=== PATIENT | male | born 1975 | race Caucasian/White ===

== ENCOUNTER 2020-11-13 09:51 | Inpatient (IN) | payer OTHER ==
[~2020-11-13] VITALS: Ht 188 cm; Wt 88.7 kg
[2020-11-13 10:38] LABS: BASOPHIL 0.9 % (0-2); EOSINOPHIL 0.3 % (0-5); HCT 46.4 % (42.0-52.0); HGB 16.4 g/dl (13.2-18.0); LYMPHOCYTE 19.4 % (15-48); MCH 34.1 pg (25.0-31.0); MCHC 35.3 g/dL (32.0-36.0); MCV 96.5 fL (78.0-100.0); MONOCYTE 11.6 % (0-12); MPV 9.5 fL (6.0-9.5); NEUTROPHIL 67.5 % (41-80); NRBC 0; PLT 119 K/uL (150-400); RBC 4.81 M/uL (4.70-6.00); RDW 11.9 % (11.5-14.0); WBC 6.8 K/uL (4.0-10.5)
[2020-11-13 10:55] LABS: ALBUMIN 4.1 g/dL (3.4-5.0); BILIRUBIN - TOTAL 1.3 mg/dL (0.2-1.0); BUN/CREAT RATIO (CALC) 15.7 RATIO; CREATININE 0.83 mg/dL (0.67-1.17); GLOBULIN (CALCULATION) 3.8 g/dL; POTASSIUM 3.5 mmol/L (3.5-5.1); TOTAL PROTEIN 7.9 g/dL (6.4-8.2)
[2020-11-13 11:42] LABS: PROTHROMBIN TIME 12.5 SECONDS (11.4-13.6)
[2020-11-13 11:43] LABS: PTT 25.2 SECONDS (22.2-34.7)
[2020-11-13 11:58] LABS: ALBUMIN 4.4 g/dL (3.4-5.0); BILIRUBIN - TOTAL 1.5 mg/dL (0.2-1.0); BUN/CREAT RATIO (CALC) 15.1 RATIO; CREATININE 0.86 mg/dL (0.67-1.17); GLOBULIN (CALCULATION) 3.2 g/dL; POTASSIUM 3.7 mmol/L (3.5-5.1); TOTAL PROTEIN 7.6 g/dL (6.4-8.2)
[2020-11-13 12:58] LABS: CORONAVIRUS 2019 SARS-COV-2 NEGATIVE (NEGATIVE); INFLUENZA A NAA NEGATIVE (NEGATIVE)
[2020-11-13 13:22] LABS: LACTIC ACID 4.3 mmol/L (0.4-1.9)
[2020-11-14 06:41] LABS: BASOPHIL 0.7 % (0-2); EOSINOPHIL 1.2 % (0-5); HCT 40.5 % (42.0-52.0); LYMPHOCYTE 17.9 % (15-48); MCH 33.4 pg (25.0-31.0); MCHC 34.6 g/dL (32.0-36.0); MCV 96.7 fL (78.0-100.0); MONOCYTE 16.9 % (0-12); MPV 10.1 fL (6.0-9.5); NEUTROPHIL 62.8 % (41-80); NRBC 0; PLT 92 K/uL (150-400); RBC 4.19 M/uL (4.70-6.00); RDW 11.7 % (11.5-14.0); WBC 4.1 K/uL (4.0-10.5)
[2020-11-14 07:10] LABS: ALBUMIN 3.3 g/dL (3.4-5.0); BILIRUBIN - TOTAL 1.8 mg/dL (0.2-1.0); BUN/CREAT RATIO (CALC) 14.5 RATIO; CREATININE 0.83 mg/dL (0.67-1.17); GLOBULIN (CALCULATION) 2.9 g/dL; POTASSIUM 3.7 mmol/L (3.5-5.1); TOTAL PROTEIN 6.2 g/dL (6.4-8.2)
[2020-11-14 07:14] LABS: BILIRUBIN 1+ mg/dL (NEGATIVE); BLOOD NEGATIVE Ery/uL (NEGATIVE); CLARITY HAZY (CLEAR); COLOR YELLOW (YELLOW); GLUCOSE (U) NORMAL (NORMAL); LEUKOCYTES NEGATIVE Leu/uL (NEGATIVE); NITRITE NEGATIVE (NEGATIVE); PROTEIN TRACE (LOW) mg/dL (NEGATIVE); SPECIFIC GRAVITY 1.015 (1.001-1.030)
[2020-11-14 07:18] LABS: ECSTASY (MDMA) NEGATIVE (NEGATIVE); MARIJUANA (THC) NEGATIVE (NEGATIVE); METHADONE NEGATIVE (NEGATIVE); OPIATES POSITIVE (NEGATIVE)
[2020-11-14 07:19] LABS: AMPHETAMINES NEGATIVE (NEGATIVE); BARBITURATES NEGATIVE (NEGATIVE); OXYCODONE NEGATIVE (NEGATIVE)
[2020-11-14 07:26] LABS: AMORPHOUS PHOSPHATE CRYSTALS MODERATE; BACTERIA TRACE
[2020-11-15 07:00] LABS: BASOPHIL 0.6 % (0-2); EOSINOPHIL 1.8 % (0-5); HCT 43.3 % (42.0-52.0); HGB 15.3 g/dl (13.2-18.0); LYMPHOCYTE 21.4 % (15-48); MCH 33.8 pg (25.0-31.0); MCHC 35.3 g/dL (32.0-36.0); MCV 95.8 fL (78.0-100.0); MONOCYTE 17.2 % (0-12); MPV 10.4 fL (6.0-9.5); NEUTROPHIL 58.6 % (41-80); NRBC 0; PLT 104 K/uL (150-400); RBC 4.52 M/uL (4.70-6.00); RDW 11.6 % (11.5-14.0); WBC 5.1 K/uL (4.0-10.5)
[2020-11-15 07:14] LABS: PROTHROMBIN TIME 12.5 SECONDS (11.4-13.6)
[2020-11-15 07:21] LABS: ALBUMIN 3.4 g/dL (3.4-5.0); BILIRUBIN - TOTAL 1.7 mg/dL (0.2-1.0); BUN/CREAT RATIO (CALC) 6.7 RATIO; CREATININE 0.89 mg/dL (0.67-1.17); GLOBULIN (CALCULATION) 3.2 g/dL; POTASSIUM 3.7 mmol/L (3.5-5.1); TOTAL PROTEIN 6.6 g/dL (6.4-8.2)
[2020-11-15 08:10] LABS: HBSAG SCREEN Negative (Negative); HEP A AB, IGM Negative (Negative); HEP B CORE AB, IGM Negative (Negative); HEP C VIRUS AB <0.1 (0.0-0.9)
[2020-11-15] MEDS ORDERED: VALIUM10 MG PO (09:14)
== END 2020-11-15 12:52 | disposition home or self-care (01) | DRG 439 ==
LOC: FER 09:51 → FMS 12:34
PROVIDERS: Emergency Medicine; ADMIT Internal Medicine
DX: K85.20 Alcohol induced acute pancreatitis without necrosis or infection (principal); F10.139 Alcohol abuse with withdrawal, unspecified; K70.10 Alcoholic hepatitis without ascites; R25.1 Tremor, unspecified; K76.0 Fatty (change of) liver, not elsewhere classified; D69.6 Thrombocytopenia, unspecified; D75.89 Other specified diseases of blood and blood-forming organs; Z20.822 Contact with and (suspected) exposure to COVID-19
CPT/HCPCS: 36415; 71045; 76705; 80053; 80074; 80305; 81001; 82150; 83605; 83690; 83735; 84484; 85025; 85610; 85730; 87040; 93005; C9113; G0480; J1170; J2060; J2405; J3360; J3411; J3475; J7030; J7120; Q9967; U0002

== ENCOUNTER 2021-03-11 07:34 | Day surgery (SDCO) | payer OTHER ==
[~2021-03-11] VITALS: Ht 188 cm; Wt 88.7 kg
[~2021-03-11 07:34] MED LIST: VALIUM10 MG PO
[2021-03-11 08:14] LABS: BASOPHIL 0.5 % (0-2); EOSINOPHIL 0.3 % (0-5); HCT 47.1 % (42.0-52.0); HGB 17.2 g/dl (13.2-18.0); LYMPHOCYTE 14.9 % (15-48); MCH 34.5 pg (25.0-31.0); MCHC 36.5 g/dL (32.0-36.0); MCV 94.4 fL (78.0-100.0); MONOCYTE 9.2 % (0-12); MPV 10.2 fL (6.0-9.5); NEUTROPHIL 74.8 % (41-80); NRBC 0; PLT 173 K/uL (150-400); RBC 4.99 M/uL (4.70-6.00); RDW 11.9 % (11.5-14.0); WBC 6.1 K/uL (4.0-10.5)
[2021-03-11 08:23] LABS: PROTHROMBIN TIME 12.5 SECONDS (11.4-13.6); PTT 25.6 SECONDS (22.2-34.7)
[2021-03-11 08:51] LABS: LACTIC ACID 3.2 mmol/L (0.4-1.9)
[2021-03-11 09:19] LABS: ALBUMIN 4.4 g/dL (3.4-5.0); ALKALINE PHOSHATASE 63 U/L (46-116); ALT 66 U/L (16-63); AST 41 U/L (15-37); BILIRUBIN - TOTAL 3.7 mg/dL (0.2-1.0); BUN 16 mg/dL (7-18); CHLORIDE 99 mmol/L (98-107); CO2 (BICARBONATE) 27 mmol/L (21-32); CREATININE 0.94 mg/dL (0.67-1.17); GLOBULIN (CALCULATION) 3.8 g/dL; GLUCOSE 156 mg/dL (74-106); LIPASE 141 U/L (73-393); MAGNESIUM 1.9 mg/dL (1.8-2.4); POTASSIUM 3.2 mmol/L (3.5-5.1); TOTAL PROTEIN 8.2 g/dL (6.4-8.2)
[2021-03-11 10:06] LABS: IRON % SATURATION 89.4 %SAT (20-50)
[2021-03-11 13:12] LABS: BILIRUBIN NEGATIVE (NEGATIVE); BLOOD NEGATIVE Ery/uL (NEGATIVE); CLARITY CLEAR (CLEAR); COLOR YELLOW (YELLOW); GLUCOSE (U) NORMAL (NORMAL); LEUKOCYTES NEGATIVE Leu/uL (NEGATIVE); NITRITE NEGATIVE (NEGATIVE); PROTEIN NEGATIVE (NEGATIVE)
[2021-03-12 06:02] LABS: BASOPHIL 0.6 % (0-2); EOSINOPHIL 1.2 % (0-5); HCT 40.7 % (42.0-52.0); HGB 14.4 g/dl (13.2-18.0); LYMPHOCYTE 27.8 % (15-48); MCH 34.2 pg (25.0-31.0); MCHC 35.4 g/dL (32.0-36.0); MCV 96.7 fL (78.0-100.0); MONOCYTE 7.8 % (0-12); MPV 10.1 fL (6.0-9.5); NRBC 0; PLT 102 K/uL (150-400); RBC 4.21 M/uL (4.70-6.00); RDW 11.9 % (11.5-14.0); WBC 3.4 K/uL (4.0-10.5)
[2021-03-12 06:50] LABS: ALBUMIN 3.3 g/dL (3.4-5.0); BILIRUBIN - TOTAL 2.4 mg/dL (0.2-1.0); BUN/CREAT RATIO (CALC) 9.7 RATIO; CREATININE 0.93 mg/dL (0.67-1.17); PHOSPHORUS 2.2 mg/dL (2.6-4.7); POTASSIUM 3.9 mmol/L (3.5-5.1); TOTAL PROTEIN 6.3 g/dL (6.4-8.2)
--- NOTE | 2021-03-12 16:09 | NUR ---
MET WITH PT. GAVE HIM THE INFORMATION REGARDING HIS APPT FOR PRIMARY WHO IS [facility]AV[facility] AT [facility]. FIRST APPT. IS 03/25/21 @ 1:30 P.M., HEMATOLOGY WITH DR. DWIGHT HAGER ON @ 8:00 A[address]O [address] JAHAIRA PIEDRA ON @ 1:05 P.M. MIR IS TO SEE REGARDING ALOHOL USE.
--- NOTE | 2021-03-13 01:18 | NUR ---
Late entry: at 2230 03/12/2021 IVF's discontinued after infusing for a duration of 5 hours.
[2021-03-13 05:39] LABS: EOSINOPHIL 1.5 % (0-5); HCT 42.6 % (42.0-52.0); HGB 15.1 g/dl (13.2-18.0); LYMPHOCYTE 25.4 % (15-48); MCH 34.2 pg (25.0-31.0); MCHC 35.4 g/dL (32.0-36.0); MCV 96.6 fL (78.0-100.0); MONOCYTE 9.6 % (0-12); MPV 10.4 fL (6.0-9.5); NEUTROPHIL 62.3 % (41-80); NRBC 0; PLT 104 K/uL (150-400); RBC 4.41 M/uL (4.70-6.00); RDW 11.7 % (11.5-14.0); WBC 4.1 K/uL (4.0-10.5)
[2021-03-13 06:53] LABS: ALBUMIN 3.3 g/dL (3.4-5.0); BILIRUBIN - TOTAL 1.4 mg/dL (0.2-1.0); BUN/CREAT RATIO (CALC) 7.8 RATIO; CREATININE 0.9 mg/dL (0.67-1.17); GLOBULIN (CALCULATION) 3.4 g/dL; POTASSIUM 4.4 mmol/L (3.5-5.1); TOTAL PROTEIN 6.7 g/dL (6.4-8.2)
[2021-03-13] MEDS ORDERED: PANTOPRAZOLE SO40 MG PO (08:06)
[2021-03-13] MEDS ORDERED: BACLOFEN 10MG T10 MG PO (08:06)
== END 2021-03-13 11:10 | disposition home or self-care (01) ==
LOC: FER 07:34 → FMS 12:13
PROVIDERS: Emergency Medicine; Internal Medicine; ADMIT Allergy & Immunology Allergy
DX: R10.84 Generalized abdominal pain (principal); F10.139 Alcohol abuse with withdrawal, unspecified; R79.0 Abnormal level of blood mineral; R74.01 Elevation of levels of liver transaminase levels; Z87.19 Personal history of other diseases of the digestive system; Z20.822 Contact with and (suspected) exposure to COVID-19
CPT/HCPCS: 36415; 80053; 81003; 82150; 82728; 82746; 83540; 83550; 83605; 83690; 83735; 84100; 84145; 84466; 84484; 85025; 85610; 85730; 93005; 94010; C9113; G0378; G0480; J1170; J1650; J2405; J3360; J3411; J3475; J3480; J7030; Q9967; U0002